=== PATIENT | female | born 1945 | race African-American/Black ===

== ENCOUNTER 2017-09-18 16:04 | Inpatient (IN) | payer OTHER, MEDICAID ==
[~2017-09-18] VITALS: Ht 162.6 cm; Wt 85.9 kg
[~2017-09-18 16:04] MED LIST: ACET500T68 PO; ASPI-612 PO; ATOR20TA58 PO; BENZ100C15 PO; CELE200C PO; CLOB15CR TP; DOXY100T PO; FLUC100T4 PO; FURO40TA4 PO; Fluticasone/Vilanterol INH; GUAI-108 PO; HYDR-2758 PO; IBUP1TAB84 PO; LORA10TA68 PO; MESA1.2T PO; METO25TA4 PO; POTA20TA4 PO; PREDNISONE; TIZA4TAB PO
--- NOTE | 2017-09-18 16:54 | RAD ---
AP PORTABLE CHEST Clinical Indication: fever. Weakness. Comparison: Two-view chest 11/26/2016. Findings: The cardiomediastinal silhouette is normal. Calcifications in the right breast are unchanged. Lungs are clear. There is no pneumothorax. No pleural effusion is appreciated. There is no acute bone abnormality. Degenerative endplate spurring in the thoracic spine. IMPRESSION: No acute cardiopulmonary process.
[2017-09-18 16:57] LABS: BASO # 0.1 x10^3/uL (0.0-0.2); BASO % 1 % (0-3); EOS # 0.1 x10^3/uL (0.0-0.7); EOS % 1 % (0-3); HEMATOCRIT 36.5 % (36.0-47.0); HEMOGLOBIN 12.6 g/dL (12.0-15.5); LYMPH # 1.4 x10^3/uL (1.0-4.8); LYMPH % 19 % (24-48); MEAN CORPUSCULAR HEMOGLOBIN 32 pg (25-35); MEAN CORPUSCULAR HGB CONC 35 g/dL (31-37); MEAN CORPUSCULAR VOLUME 92 fL (79-100); MONO # 0.9 x10^3/uL (0.0-1.1); MONO % 13 % (0-9); NEUT # 4.9 x10^3uL (1.8-7.7); NEUT % 66 % (31-73); PLATELET COUNT 223 x10^3/uL (140-400); RED BLOOD COUNT 3.95 x10^6/uL (3.50-5.40); RED CELL DISTRIBUTION WIDTH 14.1 % (11.5-14.5); WHITE BLOOD COUNT 7.3 x10^3/uL (4.0-11.0)
[2017-09-18] MEDS ORDERED: IV NORMAL SALINE 1,000ML 500 ML IV ONE (17:00)
--- NOTE | 2017-09-18 17:06 | PHYS DOC ---
Past History Past Medical History: Other Past Surgical History: Cholecystectomy, Hysterectomy, Other Alcohol Use: None Drug Use: None Adult General Chief Complaint Chief Complaint: WEAKNESS/GENERALIZED HPI HPI 72-year-old female presenting to the emergency department today with generalized fatigue malaise and fever. She recently was diagnosed with shingles and initiated on acyclovir. She continues to have the rash which is beginning to heal she reports. She denies having a cough neck stiffness confusion cyanosis lethargy. She denies numbness weakness or tingling in her extremities. She denies back pain. She denies polyuria or dysuria. She denies abdominal pain chest pain or shortness of breath. She denies cough. Onset 24 hours. Location generalized. Duration intermittent. No alleviating or exacerbating factors present. Review of systems is negative for chest pain abdominal pain nausea vomiting neck stiffness confusion. All other review of systems is negative unless otherwise noted in history of present illness. ED course: 72-year-old female presenting to the emergency department with a fever and generalized fatigue and malaise. On arrival the patient is mildly tachycardic around 115 bpm. She is febrile. Saturating well on room air. Breathing comfortably. Pertinent physical examination findings show clear lungs bilaterally. Abdomen is soft and nontender. Chest wall shows healing zoster maculopapular rash. Legs are unremarkable. Negative sign. Negative Kernig sign. Initially a small bolus of fluids along with acetaminophen to bring down the patient's fever and tachycardia ordered. Blood work obtained. Blood cultures obtained along with chest x-ray and urinalysis. Chest x-ray negative for pneumonia. CBC unremarkable. Patient's heart rate came down with IV fluids. Otherwise chemistry panel unremarkable. Broad-spectrum antibiotics and Tamiflu ordered. Discussed the case with Dr. Cornejo who accepted the patient for admission.I have assessed this patient clinically and believe that their condition requires an admission to the hospital. After consulting the admitting physician about this case, they have asked that I admit this patient to their service as an inpatient based on the clinical presentation and my impression. Review of Systems Review of Systems SEE ABOVE. Current Medications Current Medications Current Medications Medications (Trade) Dose Ordered Sig/Lenny Start Time Stop Time Status Last Admin Dose Admin Acetaminophen (Tylenol) 650 mg 1X ONCE 09/18/17 17:00 09/18/17 17:01 UNV Sodium Chloride 500 ml @ 0 mls/hr 1X ONCE 09/18/17 17:00 09/18/17 17:01 Allergies Allergies Allergies Coded Allergies Type Severity Reaction Last Updated Verified No Known Drug Allergies 07/10/14 No Physical Exam Physical Exam SEE ABOVE Constitutional: Well developed, well nourished, no acute distress, non-toxic appearance. HENT: Normocephalic, atraumatic, bilateral external ears normal, oropharynx moist, no oral exudates, nose normal. [] Eyes: PERRLA, EOMI, conjunctiva normal, no discharge. Neck: Normal range of motion, no tenderness, supple, no stridor. [] Cardiovascular: tachy rate with regular rhythm, no murmur [] Lungs & Thorax: Bilateral breath sounds clear to auscultation Abdomen: Bowel sounds normal, soft, no tenderness, no masses, no pulsatile masses. [] Skin: Warm, dry, no erythema, no rash. Back: No tenderness, no CVA tenderness. [] Extremities: No tenderness, no cyanosis, no clubbing, ROM intact, no edema. [] Neurologic: Alert and oriented X 3, normal motor function, normal sensory function, no focal deficits noted. Psychologic: Affect normal, judgement normal, mood normal. [] Current Patient Data Lab Results Laboratory Tests Test 09/18/17 16:30 White Blood Count 7.3 x10^3/uL (4.0-11.0) Red Blood Count 3.95 x10^6/uL (3.50-5.40) Hemoglobin 12.6 g/dL (12.0-15.5) Hematocrit 36.5 % (36.0-47.0) Mean Corpuscular Volume 92 fL (79-100) Mean Corpuscular Hemoglobin 32 pg (25-35) Mean Corpuscular Hemoglobin Concent 35 g/dL (31-37) Red Cell Distribution Width 14.1 % (11.5-14.5) Platelet Count 223 x10^3/uL (140-400) Neutrophils (%) (Auto) 66 % (31-73) Lymphocytes (%) (Auto) 19 % (24-48) L Monocytes (%) (Auto) 13 % (0-9) H Eosinophils (%) (Auto) 1 % (0-3) Basophils (%) (Auto) 1 % (0-3) Neutrophils # (Auto) 4.9 x10^3uL (1.8-7.7) Lymphocytes # (Auto) 1.4 x10^3/uL (1.0-4.8) Monocytes # (Auto) 0.9 x10^3/uL (0.0-1.1) Eosinophils # (Auto) 0.1 x10^3/uL (0.0-0.7) Basophils # (Auto) 0.1 x10^3/uL (0.0-0.2) EKG EKG [] Radiology/Procedures Radiology/Procedures [] Course & Med Decision Making Course & Med Decision Making Pertinent Labs and Imaging studies reviewed. (See chart for details) [] Dragon Disclaimer Dragon Disclaimer This electronic medical record was generated, in whole or in part, using a voice recognition dictation system. Departure Departure: Impression: Primary Impression: Fever Disposition: ADMITTED INPATIENT Condition: STABLE Referrals: GURWINDER HARRIS (PCP) LANI OSBORNE MD Sep 18, 2017 17:06
[2017-09-18 17:14] LABS: ALBUMIN 3.5 g/dL (3.4-5.0); CALCIUM 8.9 mg/dL (8.5-10.1); CREATININE 1.1 mg/dL (0.6-1.0); DIRECT BILIRUBIN 0.1 mg/dL (0.0-0.2); GFR 59.4; TOTAL BILIRUBIN 0.7 mg/dL (0.2-1.0); TOTAL PROTEIN 7.8 g/dL (6.4-8.2)
[2017-09-18] MEDS ORDERED: ACETAMINOPHEN 325 MG TABLET PO ONE (17:30)
[2017-09-18 17:56] LABS: CLARITY,URINE CLEAR; COLOR,URINE YELLOW
[2017-09-18 17:57] LABS: BACTERIA,URINE 0 /HPF (0-FEW); BILIRUBIN,URINE NEG (NEG); GLUCOSE,URINE NEG (NEG); HYALINE CASTS, URINE MOD /HPF; NITRITE,URINE NEG (NEG); UROBILINOGEN,URINE 0.2 mg/dL (0.2 mg/dL)
[2017-09-18] MEDS ORDERED: PIP/TAZO PER PHARMACY MC PRN (18:00)
[2017-09-18] MEDS ORDERED: OSELTAMIVIR 75 MG CAPSULE PO ONE (18:00)
--- NOTE | 2017-09-18 18:07 | EKG ---
[address] [address] Test Date: 2017-09-18 Test Time: 16:58:44 Pat Name: NAA JUAREZ Department: Room: Gender: F Adult Parole Officer: CHRISTIANNE : 1945 Requested By: LANI OSBORNE Order Number: [id number] Reading MD: Joe Garcia MD Measurements Intervals [employer] Rate: 113 P: 0 MD: 132 QRS: -12 QRSD: 88 T: 173 QT: 338 QTc: 469 Interpretive Statements SINUS TACHYCARDIA NON-SPECIFIC ST/T CHANGES Electronically Signed On 09-21-2017 11:43:16 WIRE BOUND BOX MACHINE OPERATOR by Joe Garcia MD
[2017-09-18] MEDS ORDERED: IV NORMAL SALINE 50ML 50 ML ONE (18:15)
[2017-09-18] MEDS ORDERED: ONDANSETRON PF 4 MG/2 ML VIAL. IV PRN (18:15)
[2017-09-18] MEDS ORDERED: MORPHINE SULFATE 4 MG/ML DISP.SYRIN. IV PRN (18:15)
[2017-09-18] MEDS ORDERED: HYDROcodone/APAP 5/325MG 1 TAB TABLET PO ONE (18:15)
[2017-09-18] MEDS ORDERED: ACETAMINOPHEN 325 MG TABLET PO PRN (18:15)
[2017-09-18] MEDS ORDERED: PIPERACILLIN/TAZOBACTAM 3.375 GM VIAL IV ONE (18:15)
[2017-09-18] MEDS ORDERED: PIPERACILLIN/TAZOBACTAM 3.375 GM in IV NORMAL SALINE 50ML 50 ML IV SCH (18:30)
[2017-09-18 18:59] LABS: INFLUENZA A PATIENT NEGATIVE (NEGATIVE); INFLUENZA B PATIENT NEGATIVE (NEGATIVE)
[2017-09-18] MEDS ORDERED: VALA1000 PO (19:28)
[2017-09-18] MEDS ORDERED: TRAM50TA PO (19:28)
[2017-09-18] MEDS ORDERED: PREG75CA PO (19:28)
[2017-09-18] MEDS ORDERED: LISI-338 PO (19:34)
[2017-09-18] MEDS ORDERED: CYCL5.5D (19:34)
[2017-09-18] MEDS ORDERED: PRED1DRO (19:34)
[2017-09-18 19:56] VITALS: BP 167/105
[2017-09-18] MEDS: ACYCLOVIR SODIUM 500 MG in IV DEXTROSE 5% 100 ML IV SCH (21:09)
[2017-09-18 23:30] VITALS: BP 117/56
[2017-09-19] MEDS ORDERED: PNEUMOCOCCAL VAX SCREEN. MC PRN (01:30)
[2017-09-19] MEDS: ACYCLOVIR SODIUM 500 MG in IV DEXTROSE 5% 100 ML IV SCH ×2 (05:38→18:14)
[2017-09-19 05:47] VITALS: BP 128/66
[2017-09-19 07:18] LABS: BASO # 0.1 x10^3/uL (0.0-0.2); BASO % 1 % (0-3); EOS # 0.1 x10^3/uL (0.0-0.7); EOS % 2 % (0-3); HEMATOCRIT 34.2 % (36.0-47.0); HEMOGLOBIN 11.6 g/dL (12.0-15.5); LYMPH # 1.7 x10^3/uL (1.0-4.8); LYMPH % 31 % (24-48); MEAN CORPUSCULAR HEMOGLOBIN 31 pg (25-35); MEAN CORPUSCULAR HGB CONC 34 g/dL (31-37); MEAN CORPUSCULAR VOLUME 92 fL (79-100); MONO # 0.9 x10^3/uL (0.0-1.1); MONO % 17 % (0-9); NEUT # 2.7 x10^3uL (1.8-7.7); NEUT % 49 % (31-73); PLATELET COUNT 207 x10^3/uL (140-400); RED CELL DISTRIBUTION WIDTH 14.3 % (11.5-14.5); WHITE BLOOD COUNT 5.6 x10^3/uL (4.0-11.0)
[2017-09-19 07:26] LABS: CALCIUM 8.2 mg/dL (8.5-10.1); CREATININE 1.3 mg/dL (0.6-1.0); POTASSIUM 3.1 mmol/L (3.5-5.1)
[2017-09-19] MEDS ORDERED: BENZONATATE 100 MG CAPSULE. PO PRN (08:15)
[2017-09-19] MEDS ORDERED: FLUTICASONE INH SCH (09:00)
[2017-09-19] MEDS ORDERED: BUDESONIDE 0.5 MG/2 ML NEBU NEB SCH (09:00)
[2017-09-19] MEDS ORDERED: [UNRECOGNIZED DRUG - OTHER] INH SCH (09:00)
[2017-09-19] MEDS ORDERED: ALBUTEROL SULFATE 2.5 MG/3 ML NEBU. ONE (09:38)
[2017-09-19] MEDS: POTASSIUM CHLORIDE 20 MEQ TABLET.ER. PO SCH ×2 (09:40→21:13)
[2017-09-19] MEDS: guaiFENesin DM 600/30MG 1 TAB TAB.ER.12H PO SCH ×2 (09:40→21:13)
[2017-09-19] MEDS: MESALAMINE 1.2 GM TABLET.DR PO SCH (09:41)
[2017-09-19] MEDS: LISINOPRIL 5 MG TABLET. PO SCH (09:41)
[2017-09-19] MEDS: traMADol 50 MG TABLET PO PRN ×2 (09:47→16:30)
[2017-09-19 11:07] VITALS: BP 118/78
[2017-09-19] MEDS: POTASSIUM CL 40MEQ D5-0.45NACL 1,000 ML IV SCH ×2 (11:39→21:12)
[2017-09-19] MEDS ORDERED: ALBUTEROL SULFATE 2.5 MG/3 ML NEBU. NEB SCH (12:00)
[2017-09-19] MEDS: ACYCLOVIR 5% TOPICAL OINT 5GM TUBE. TP SCH ×3 (14:00→21:22)
--- NOTE | 2017-09-19 14:20 | HP ---
ADMIT DATE: 09/18/2017 REASON FOR ADMISSION: Fever and weakness. HISTORY OF PRESENT ILLNESS: This is a 72-year-old -[place] female who was diagnosed with herpes zoster a couple of days ago and was started on valacyclovir. She was at home and became so weak to the point where she could not get herself off of the toilet. Her admissions specialist actually came and helped her get off the toilet and she came to the hospital by ambulance. PAST MEDICAL HISTORY: She has had a history of congestive heart failure. PAST SURGICAL HISTORY: Cholecystectomy and hysterectomy. SOCIAL HISTORY: Alcohol none. Tobacco none. Lives at home alone. ALLERGIES: None. MEDICATIONS: Reviewed and reconciled. REVIEW OF SYSTEMS: Positive for low back pain, some pain with the rash, fever and weakness, and constipation. OBJECTIVE: VITAL SIGNS: Blood pressure 118/78, pulse 71, respirations 20, temperature 97.8. Her T-max was 102.7, pulse ox is 96% on room air. HEENT: The face is normal. Hearing is normal. Eyes were clear. Her throat was clear. NECK: Supple. LUNGS: Clear to auscultation. CARDIOVASCULAR: Regular rhythm and rate without murmur. ABDOMEN: Soft, nontender. EXTREMITIES: Without edema. SKIN: The patient has an impressive breakout of herpes zoster from T11-T12 dermatome and all coming from the back, left side coming already around to the front but not crossing the midline. LABORATORY DATA: Hemoglobin 11.6, hematocrit 34.2. White blood cell count is normal. Chemistry: Potassium 3.1, CO2 is 20, creatinine 1.3 and it was 1.1. BNP 1119. Her troponin is 0.017. Urinalysis is negative. Flu negative. ASSESSMENT: 1. Febrile illness, most likely related to acute herpes zoster. 2. Hypokalemia. 3. Metabolic acidosis related to illness. 4. Slight dehydration. 5. Weakness. 6. Constipation. PLAN: IV acyclovir for a couple of days. PT, OT. Treat her fever and give her some IV fluids. Advance her diet. REINA MIRZA DO DR: STACEY/rafia JOB#: [id number] / [id number]
[2017-09-19 15:19] VITALS: BP 134/77
[2017-09-19] MEDS ORDERED: Influenza vaccine per PROTOCOL. MC PRN (18:15)
[2017-09-19] MEDS ORDERED: FLU VACC QS2017-18 (36MOS+)/PF 0.5 ML SYRINGE. VAX IM ONE (18:30)
[2017-09-19 19:42] VITALS: BP 180/82
[2017-09-19] MEDS ORDERED: MORPHINE SULFATE 2 MG/ML DISP.SYRIN. IV PRN (20:30)
[2017-09-19] MEDS: POLYETHYLENE GLYCOL 3350 17 GM PACKET. PO SCH (21:00)
[2017-09-19] MEDS: HYDROcodone/APAP 5/325MG 1 TAB TABLET PO PRN (21:13)
[2017-09-19] MEDS: ATORVASTATIN CALCIUM 20 MG TABLET PO SCH (21:13)
[2017-09-19 22:52] VITALS: BP 154/80
[2017-09-20] MEDS: HYDROcodone/APAP 5/325MG 1 TAB TABLET PO PRN ×4 (03:05→22:12)
[2017-09-20] MEDS: ACYCLOVIR SODIUM 500 MG in IV DEXTROSE 5% 100 ML IV SCH ×2 (05:25→17:05)
[2017-09-20] MEDS: POTASSIUM CL 40MEQ D5-0.45NACL 1,000 ML IV SCH ×2 (05:26→10:30)
[2017-09-20] MEDS: ACYCLOVIR 5% TOPICAL OINT 5GM TUBE. TP SCH ×3 (05:26→14:00)
[2017-09-20 06:34] VITALS: BP 162/84
[2017-09-20 07:19] LABS: BASO # 0.1 x10^3/uL (0.0-0.2); BASO % 1 % (0-3); EOS # 0.6 x10^3/uL (0.0-0.7); EOS % 8 % (0-3); HEMATOCRIT 32.4 % (36.0-47.0); LYMPH # 2.3 x10^3/uL (1.0-4.8); LYMPH % 33 % (24-48); MEAN CORPUSCULAR HEMOGLOBIN 32 pg (25-35); MEAN CORPUSCULAR HGB CONC 34 g/dL (31-37); MEAN CORPUSCULAR VOLUME 93 fL (79-100); MONO % 14 % (0-9); NEUT % 44 % (31-73); PLATELET COUNT 206 x10^3/uL (140-400); RED BLOOD COUNT 3.49 x10^6/uL (3.50-5.40); RED CELL DISTRIBUTION WIDTH 14.6 % (11.5-14.5); WHITE BLOOD COUNT 6.9 x10^3/uL (4.0-11.0)
[2017-09-20 07:28] LABS: ALBUMIN 2.9 g/dL (3.4-5.0); ALBUMIN/GLOBULIN RATIO 0.8 (1.0-1.7); CALCIUM 8.3 mg/dL (8.5-10.1); CREATININE 1.1 mg/dL (0.6-1.0); GFR 59.4; MAGNESIUM 2.1 mg/dL (1.8-2.4); POTASSIUM 4.6 mmol/L (3.5-5.1); TOTAL BILIRUBIN 0.4 mg/dL (0.2-1.0); TOTAL PROTEIN 6.6 g/dL (6.4-8.2)
[2017-09-20] MEDS ORDERED: PNEUMOC CONJ VACC 23-VALENT 0.5 ML VIAL. VAX IM ONE (09:00)
[2017-09-20] MEDS: guaiFENesin DM 600/30MG 1 TAB TAB.ER.12H PO SCH ×2 (09:11→20:31)
[2017-09-20] MEDS: LISINOPRIL 5 MG TABLET. PO SCH (09:11)
[2017-09-20] MEDS: MESALAMINE 1.2 GM TABLET.DR PO SCH (09:12)
[2017-09-20 16:12] VITALS: BP 144/78
[2017-09-20 19:28] VITALS: BP 153/78
[2017-09-20] MEDS: POLYETHYLENE GLYCOL 3350 17 GM PACKET. PO SCH (20:31)
[2017-09-20] MEDS: ATORVASTATIN CALCIUM 20 MG TABLET PO SCH (20:31)
[2017-09-20 23:49] VITALS: BP 143/83
--- NOTE | 2017-09-21 01:16 | PN ---
DATE: 09/20/2017 SUBJECTIVE: The patient is sitting on the edge of the bed comfortably in no apparent distress. She did say that she did have pain last night; however, she has had taken pain medication, ibuprofen and has not had any pain medication for almost 6 hours now. Denied any other complaint. PHYSICAL EXAMINATION: GENERAL: When I examined her, she looked pale, no jaundice, cyanosis, or thyromegaly. No jugular venous distention. No limb edema. VITAL SIGNS: Her heart rate was 70, blood pressure 128/66, her temperature was 97.6, respiratory rate was 16, and oxygen saturation was 95% on room air. HEAD, EYES, EARS, NOSE AND THROAT: Showed normocephalic, atraumatic. NECK: Supple. HEART: Showed normal first and second heart sounds. No gallop, rub or murmur. CHEST: Clear to auscultation. No crepitation or rhonchi. ABDOMEN: Distended, soft, nontender. No guarding or rigidity. No organomegaly. All hernial orifices intact. Bowel sounds normal. NEUROLOGIC: She has a group blisters in the distribution of the left-sided T9 with groups of blister and pustules that has not scabbed yet. NEUROLOGICAL: She was awake, alert, responding appropriately. Cranial nerves intact. She moves extremities without difficulty. She ambulates without assistance or assistive devices. SKIN: Showed that she has shingles in distribution of the left sided T9. Her intake was 3000, output was 1200. LABORATORY DATA: Her lab work this morning showed a white cell count of 6900, hemoglobin 11, hematocrit 32, MCV 93, and platelet count of 206,000. Her chemistry showed a serum sodium 135, potassium 4.6, chloride 109, bicarbonate 20, BUN 7, serum creatinine was 1.1. Estimated GFR was 59 mL per minute. Her glucose was 105, calcium was 8.3, magnesium was 1.9. Total bilirubin, AST, ALT, alkaline phosphatase were normal. Total protein was 6.6, albumin 2.9. Urinalysis unremarkable. Her influenza A and B was negative. Her blood cultures are so far negative. ASSESSMENT: Left-sided T9 herpes zoster, hypokalemia, dehydration. PLAN: Is to continue with IV acyclovir. Continue with the pain medication, __ and follow her labs. LIMA LEE MD DR: BETHANY/rafia JOB#: [id number] / [id number]
[2017-09-21] MEDS: HYDROcodone/APAP 5/325MG 1 TAB TABLET PO PRN ×4 (04:04→20:18)
[2017-09-21 05:55] VITALS: BP 160/89
[2017-09-21] MEDS: ACYCLOVIR SODIUM 500 MG in IV DEXTROSE 5% 100 ML IV SCH ×2 (05:55→23:27)
[2017-09-21 07:28] LABS: HEMATOCRIT 35.4 % (36.0-47.0); HEMOGLOBIN 11.9 g/dL (12.0-15.5); RED BLOOD COUNT 3.75 x10^6/uL (3.50-5.40); RED CELL DISTRIBUTION WIDTH 14.7 % (11.5-14.5); WHITE BLOOD COUNT 6.2 x10^3/uL (4.0-11.0)
[2017-09-21 07:35] LABS: ALBUMIN 3.4 g/dL (3.4-5.0); ALBUMIN/GLOBULIN RATIO 0.9 (1.0-1.7); CALCIUM 8.9 mg/dL (8.5-10.1); GFR 66.3; TOTAL BILIRUBIN 0.4 mg/dL (0.2-1.0); TOTAL PROTEIN 7.1 g/dL (6.4-8.2)
[2017-09-21] MEDS: MESALAMINE 1.2 GM TABLET.DR PO SCH (08:34)
[2017-09-21] MEDS: guaiFENesin DM 600/30MG 1 TAB TAB.ER.12H PO SCH ×2 (08:34→20:18)
[2017-09-21] MEDS: LISINOPRIL 5 MG TABLET. PO SCH (08:35)
[2017-09-21 15:11] VITALS: BP 127/87
--- NOTE | 2017-09-21 19:07 | PN ---
DATE: 09/21/2017 SUBJECTIVE: The patient is resting, slightly propped up in bed, in no apparent respiratory distress. She is awake, alert, continued to complain of pain in the left side of her chest along the herpes zoster in dermatomal distribution. She also complained of frequency, denied any dysuria or polyuria. She has received pain medication only twice a day. She continued to be on IV acyclovir. PHYSICAL EXAMINATION: GENERAL: When I examined her, she looked pale, no jaundice or cyanosis. No thyromegaly or compression edema. VITAL SIGNS: Her heart rate was 92, blood pressure 127/87, temperature was 97.9, respiratory rate 20, and oxygen saturation was 93%. HEAD, EYES, EARS, NOSE AND THROAT: Normocephalic, atraumatic. NECK: Supple. HEART: Showed normal first and second heart sounds with no gallop, rub, or murmur. CHEST: Clear to auscultation. No crepitation or rhonchi. ABDOMEN: Distended, soft, nontender. No guarding or rigidity. No organomegaly. Hernial orifice is intact. Bowel sounds normal. NEUROLOGIC: She was awake, alert, responding appropriately and intact. She moves extremities without difficulty. SKIN: She has herpes zoster along with the T9 on the left side. The blister is still there, still coalescing, and has not really scabbed yet. Her intake over the last 24 hours was 1140, output was 1800. LABORATORY DATA: Her lab work as of this morning showed a white cell count of 6000, hemoglobin 11, hematocrit 35, MCV 94, and platelet 236,000. Her chemistry showed a serum sodium 140, potassium 5, chloride 109, bicarbonate 20, anion gap 12, BUN 10, creatinine 1, estimated GFR was 66 mL per minute. Her glucose was 89, calcium was 8.9. Total bilirubin, AST, ALT, alkaline phosphatase were normal. Total protein was 7.1, albumin 3.4. Urinalysis was unremarkable. She has actually no bacteria. ASSESSMENT: 1. Left-sided T9 herpes zoster, on acyclovir. 2. Hypokalemia, resolved. 3. Dehydration, resolving. 4. The patient has complained of fake frequency with no polyuria or dysuria. PLAN: Her urinalysis on 09/18/2017 was normal. We will repeat another UA and culture and sensitivity. I will discontinue any potassium supplement and will repeat her lab work tomorrow. LIMA LEE MD DR: BETHANY/rafia JOB#: [id number] / [id number]
[2017-09-21 19:19] VITALS: BP 163/83
[2017-09-21] MEDS: POLYETHYLENE GLYCOL 3350 17 GM PACKET. PO SCH (19:57)
[2017-09-21] MEDS: ATORVASTATIN CALCIUM 20 MG TABLET PO SCH (20:18)
[2017-09-21 20:45] LABS: BILIRUBIN,URINE NEG (NEG); CLARITY,URINE CLEAR; COLOR,URINE STRAW; GLUCOSE,URINE NEG (NEG)
[2017-09-21 20:46] LABS: BACTERIA,URINE 0 /HPF (0-FEW); NITRITE,URINE NEG (NEG); RBC,URINE 0 /HPF (0-2); SQUAMOUS EPITHELIAL CELL,UR OCC /LPF; UROBILINOGEN,URINE 0.2 mg/dL (0.2 mg/dL); WBC,URINE OCC /HPF (0-4)
[2017-09-22] MEDS: HYDROcodone/APAP 5/325MG 1 TAB TABLET PO PRN ×3 (00:22→12:38)
[2017-09-22 05:32] VITALS: BP_SYST 155; BP_SYST 161; BP_DIAS 87; BP_DIAS 97
[2017-09-22 05:33] LABS: HEMATOCRIT 34.4 % (36.0-47.0); HEMOGLOBIN 11.5 g/dL (12.0-15.5); RED BLOOD COUNT 3.68 x10^6/uL (3.50-5.40); RED CELL DISTRIBUTION WIDTH 14.5 % (11.5-14.5); WHITE BLOOD COUNT 6.8 x10^3/uL (4.0-11.0)
[2017-09-22 05:40] LABS: CALCIUM 8.8 mg/dL (8.5-10.1); GFR 66.3; POTASSIUM 4.5 mmol/L (3.5-5.1)
[2017-09-22] MEDS: LISINOPRIL 5 MG TABLET. PO SCH (07:46)
[2017-09-22] MEDS: MESALAMINE 1.2 GM TABLET.DR PO SCH (07:47)
[2017-09-22] MEDS: traMADol 50 MG TABLET PO PRN ×2 (07:47→16:05)
[2017-09-22] MEDS: guaiFENesin DM 600/30MG 1 TAB TAB.ER.12H PO SCH ×2 (07:47→21:08)
[2017-09-22 11:17] VITALS: BP 128/77
[2017-09-22] MEDS: diphenhydrAMINE HCL 25 MG CAPSULE PO PRN ×3 (11:32→23:47)
[2017-09-22] MEDS: ACYCLOVIR SODIUM 500 MG in IV DEXTROSE 5% 100 ML IV SCH ×2 (11:33→23:47)
[2017-09-22 20:51] VITALS: BP 121/67
[2017-09-22] MEDS: POLYETHYLENE GLYCOL 3350 17 GM PACKET. PO SCH (21:00)
[2017-09-22] MEDS: oxyCODONE ER 10 MG TAB.ER.12H PO SCH (21:08)
[2017-09-22] MEDS: ATORVASTATIN CALCIUM 20 MG TABLET PO SCH (21:08)
[2017-09-22] MEDS: TEMAZEPAM 15 MG CAPSULE PO PRN (22:11)
--- NOTE | 2017-09-23 00:34 | PN ---
DATE: 09/22/2017 SUBJECTIVE: The patient is sitting on the edge of the bed, no apparent distress. She continued to complain of pain on her left side and also insomnia. OBJECTIVE: GENERAL: When I examined her, she looked pale, but not jaundiced, cyanosed or thyromegaly. No jugular venous distention. No limb edema. VITAL SIGNS: Her heart rate was 91, blood pressure 128/77, temperature was 98, respiratory rate 20, and oxygen saturation was 95%. HEAD, EYES, EARS, NOSE AND THROAT: Showed normocephalic, atraumatic. NECK: Supple. HEART: Showed normal first and second heart sounds with no gallop, rub or murmur. CHEST: Clear to auscultation. No crepitation or rhonchi. ABDOMEN: Distended, soft, nontender. No guarding or rigidity. No organomegaly. Hernial orifice intact. Bowel sounds normal. NEUROLOGIC: She was grossly intact. She has left-sided T9 herpes zoster in a dermatomal distribution. Her intake over the last 24 hours was 1740, output was 1650. LABORATORY DATA: Her serum sodium 141, potassium 4.5, chloride 107, bicarbonate 25, anion gap of 9, BUN 10, creatinine was 1. Estimated GFR was 66 mL per minute. Her glucose 97, calcium was 8.8. Her white cell count was 6800, hemoglobin 11.5, hematocrit 34.4, MCV 93, and platelet count 253,000. ASSESSMENT: 1. Left-sided T9 herpes zoster with acyclovir. The patient continued to complain of severe pain requiring hydrocodone. I added also OxyContin as well as Vistaril for insomnia. 2. Hypokalemia, resolved. 3. Dehydration, resolving. PLAN: We did send urine for urinalysis, which was basically essentially unremarkable. The urine was clear with a pH of 5, specific gravity 1.005. The urine was negative for protein, glucose, ketones, blood, nitrite with trace of leukocyte esterase, 0 rbc's, very occasional wbc's, no bacteria. My plan is to start her on OxyContin 10 mg twice a day, Vistaril 15 mg at bedtime. Continue meanwhile with acyclovir. Continue with the Benadryl for itching. We will decide on further management accordingly. LIMA LEE MD DR: Christopher JOB#: [id number] / [id number]
[2017-09-23 05:10] VITALS: BP 133/84
[2017-09-23] MEDS ORDERED: ACYCLOVIR SODIUM 500 MG in IV DEXTROSE 5% 100 ML IV SCH (09:00)
[2017-09-23] MEDS: MESALAMINE 1.2 GM TABLET.DR PO SCH (09:06)
[2017-09-23] MEDS: guaiFENesin DM 600/30MG 1 TAB TAB.ER.12H PO SCH ×2 (09:06→21:12)
[2017-09-23] MEDS: LISINOPRIL 5 MG TABLET. PO SCH (09:07)
[2017-09-23] MEDS: oxyCODONE ER 10 MG TAB.ER.12H PO SCH ×2 (09:07→21:12)
[2017-09-23] MEDS: ACYCLOVIR SODIUM 500 MG in IV DEXTROSE 5% 100 ML IV SCH ×2 (09:34→17:15)
--- NOTE | 2017-09-23 11:18 | PN ---
DATE: 09/23/2017 SUBJECTIVE: The patient is resting, slightly propped up in bed, in no apparent distress. She stated that she has a good night sleep. Her pain is much better controlled. Blisters of all over opened up, some of them are scabbed. PHYSICAL EXAMINATION: GENERAL: When I examined her this morning, she looked well and was clearly in no apparent respiratory distress, pale, but no jaundice, cyanosis or thyromegaly. No jugular venous distention. No limb edema. VITAL SIGNS: Her heart rate was 103, blood pressure 133/84, temperature was 97.8, respiratory rate was 18 and oxygen saturation was 94%. HEAD, EYES, EARS, NOSE AND THROAT: Showed normocephalic, atraumatic. NECK: Supple. HEART: Showed normal first and second sounds. No gallop, rub or murmur. CHEST: Clear to auscultation. No crepitation or rhonchi. ABDOMEN: Distended, soft, nontender. NEUROLOGIC: She is awake, alert, responding appropriately. Cranial nerves intact. She moves extremities without difficulty. She ambulates without assistance or assistive devices. Her intake was 1000, output was 400. LABORATORY DATA: Her lab work this morning showed a white cell count of 6800, hemoglobin 11.5, hematocrit 34.4, MCV 93, and platelet count 253,000. Chemistry showed a serum sodium 141, potassium 4.5, chloride 107, bicarbonate 25, anion gap of 9, BUN 10, creatinine 1, estimated GFR was 66 mL per minute. Her glucose was 97. Calcium was 8.8. ASSESSMENT: 1. Left-sided T9 herpes zoster, currently on IV acyclovir. Her pain is much better controlled after adding OxyContin. 2. Insomnia, responding very well to Restoril. 3. Hypokalemia, resolved. 4. Dehydration, resolved. She also has complained of frequency, however, her urinalysis was unremarkable. PLAN: To continue with IV acyclovir, continue with pain management. Continue with the diphenhydramine for pruritus. She remains stable tomorrow. We can discharge her home to continue with oral acyclovir. LIMA LEE MD DR: BETHANY/rafia JOB#: [id number] / [id number]
[2017-09-23] MEDS: diphenhydrAMINE HCL 25 MG CAPSULE PO PRN (14:05)
[2017-09-23 14:49] VITALS: BP 112/64
[2017-09-23] MEDS: POLYETHYLENE GLYCOL 3350 17 GM PACKET. PO SCH (21:00)
[2017-09-23] MEDS: ATORVASTATIN CALCIUM 20 MG TABLET PO SCH (21:12)
[2017-09-23] MEDS: TEMAZEPAM 15 MG CAPSULE PO PRN (22:04)
[2017-09-23 23:49] VITALS: BP 123/70
[2017-09-24] MEDS: ACYCLOVIR SODIUM 500 MG in IV DEXTROSE 5% 100 ML IV SCH ×2 (00:53→09:00)
[2017-09-24] MEDS: diphenhydrAMINE HCL 25 MG CAPSULE PO PRN (05:04)
[2017-09-24 06:27] VITALS: BP 99/63
[2017-09-24] MEDS: guaiFENesin DM 600/30MG 1 TAB TAB.ER.12H PO SCH ×2 (08:59→19:32)
[2017-09-24] MEDS: oxyCODONE ER 10 MG TAB.ER.12H PO SCH ×2 (09:00→19:31)
[2017-09-24] MEDS: MESALAMINE 1.2 GM TABLET.DR PO SCH (09:00)
[2017-09-24] MEDS: LISINOPRIL 5 MG TABLET. PO SCH (09:01)
[2017-09-24] MEDS ORDERED: PNEUMOC CONJ VACC 23-VALENT 0.5 ML VIAL. VAX IM ONE (09:15)
[2017-09-24] MEDS ORDERED: FLU VACC QS2017-18 (36MOS+)/PF 0.5 ML SYRINGE. VAX IM ONE (09:15)
--- NOTE | 2017-09-24 12:05 | PN ---
DATE: 09/24/2017 SUBJECTIVE: The patient is resting slightly propped up in bed, in no apparent respiratory distress. She continued to feel some dizziness and pain. She said that she is not ready to go home today and would like to stay one more day here. Her shingles is much improved. All the blisters are scabbed. PHYSICAL EXAMINATION: GENERAL: When I examined her, she looked pale, but no jaundice, cyanosis, or thyromegaly. No jugular venous distention. No limb edema. VITAL SIGNS: Her heart rate was 72, blood pressure 118/62, temperature was 97.7, respiratory rate was 18 and oxygen saturation was 95%. HEAD, EYES, EARS, NOSE AND THROAT: Normocephalic, atraumatic. NECK: Supple. HEART: Showed normal first and second heart sounds with no gallop, rub or murmur. CHEST: Clear to auscultation. No crepitation or rhonchi. ABDOMEN: Distended, soft, nontender. No guarding or rigidity. No organomegaly. Hernial orifice intact. Bowel sounds normal. NEUROLOGIC: She was awake, alert, responding appropriately. Cranial nerves intact. She is ambulating without assistance or assistive devices. Her intake over the last 24 hours was 1200, output was 1050. LABORATORY DATA: Her most recent serum sodium 141, potassium 4.5, chloride 107, bicarbonate 25, anion gap of 9, BUN 10, creatinine 1, estimated GFR was 66 mL per minute. Her glucose 97, calcium was 8.8. Her white cell count was 6800, hemoglobin 11.5, hematocrit 34, MCV 93, and platelet count 253,000. Her urine culture has grown gram-negative rods about 50,000 to 100,000 colony forming units per mL, which is a mixed urogenital niko. PLAN: My plan is to switch her to oral acyclovir and continue with all other medication. Continue with physical and occupational therapy. We will discharge her home tomorrow. LIMA LEE MD DR: BETHANY/rafia JOB#: [id number] / [id number]
[2017-09-24] MEDS: ACYCLOVIR 200 MG CAPSULE PO SCH ×4 (12:41→21:59)
[2017-09-24 15:01] VITALS: BP 109/68
[2017-09-24] MEDS: HYDROcodone/APAP 5/325MG 1 TAB TABLET PO PRN (16:19)
[2017-09-24 19:26] VITALS: BP 119/72
[2017-09-24] MEDS: TEMAZEPAM 15 MG CAPSULE PO PRN (19:30)
[2017-09-24] MEDS: ATORVASTATIN CALCIUM 20 MG TABLET PO SCH (19:30)
[2017-09-24] MEDS: POLYETHYLENE GLYCOL 3350 17 GM PACKET. PO SCH (19:32)
[2017-09-25] MEDS: ACYCLOVIR 200 MG CAPSULE PO SCH ×2 (05:29→10:46)
[2017-09-25] MEDS: HYDROcodone/APAP 5/325MG 1 TAB TABLET PO PRN ×2 (05:52→10:49)
[2017-09-25 05:53] VITALS: BP 98/58
[2017-09-25] MEDS: oxyCODONE ER 10 MG TAB.ER.12H PO SCH (08:37)
[2017-09-25] MEDS: guaiFENesin DM 600/30MG 1 TAB TAB.ER.12H PO SCH (08:37)
[2017-09-25] MEDS: MESALAMINE 1.2 GM TABLET.DR PO SCH (08:38)
[2017-09-25 08:43] VITALS: BP 98/63
[2017-09-25] MEDS: LISINOPRIL 5 MG TABLET. PO SCH (10:46)
[2017-09-25 10:52] VITALS: BP 128/68
[2017-09-25] MEDS ORDERED: ACYC800T PO (12:26)
[2017-09-25] MEDS ORDERED: OXYC10TA45 PO (12:30)
[2017-09-25] MEDS ORDERED: TEMA15CA PO (12:30)
[2017-09-25] MEDS ORDERED: HYDR-2758 PO (12:30)
--- NOTE | 2017-09-25 13:19 | DS ---
DATE OF DISCHARGE: 09/25/2017 HISTORY OF PRESENT ILLNESS: The patient is a 72-year-old -[place] female patient who was admitted on 09/19/2017 who apparently was diagnosed with herpes zoster a couple of days prior to admission, was started on valacyclovir. She was at home and became so weak to the point that she could not get herself to the toilet and her railway switch operator came and she was brought to the emergency room by ambulance. At that time, she was found to be febrile, most likely related to acute herpes zoster. She has also hypokalemia and metabolic acidosis. She was slightly dehydrated and also has marked weakness and constipation and was switched to IV acyclovir dose that her kidney function and she did very well. All the blisters have opened and her rash is scabbing, has been up and about, walking without assistance or assistive devices. Her pain is much better controlled now with oxycodone, hydrocodone, and it was felt that the patient is stable enough to be discharged home with home health to finish the oral acyclovir at home. PHYSICAL EXAMINATION: GENERAL: When I examined her today, she looked pale without jaundice, cyanosis, or thyromegaly. No jugular venous distension. No lower limb edema. VITAL SIGNS: Her heart rate was 88, blood pressure 128/68, temperature was 98.2, respiratory rate 20, and oxygen saturation was 93%. HEAD, EYES, EARS, NOSE AND THROAT: Normocephalic, atraumatic. NECK: Supple. HEART: Showed normal first and second heart sounds. No gallop, rub or murmur. CHEST: Clear to auscultation. No crepitation or rhonchi. ABDOMEN: Distended, soft, nontender. No guarding or rigidity. No organomegaly. Her hernial orifice intact. Bowel sounds normal. NEUROLOGIC: She was awake, alert, responding appropriately. Cranial nerves intact. She moves extremities without difficulty. She ambulates without assistance or assistive devices. All the blisters are completely opened up and all the wounds are scabbing. Her intake over the last 24 hours was 1200, output was 1000. LABORATORY DATA: Her most recent white cell count was 6800, hemoglobin 11.5, hematocrit 34.4, MCV 93, and platelet count 253,000. Her chemistry showed a serum sodium of 141, potassium 4.5, chloride 107, bicarbonate 25, Her anion gap was 9, BUN 10, creatinine 1, estimated GFR was 66 mL per minute, glucose 97, calcium was 8.8. Her total protein was 7.1, albumin was 3.4. DISCHARGE MEDICATIONS: The patient will be discharged home to continue on following medications: Acyclovir 800 mg 5 times a day for 3 more days, hydrocodone/APAP 5/325 one tablet every 6 hours as needed for pain, oxycodone for OxyContin 10 mg twice a day, temazepam 50 mg at bedtime. She was also discharged on atorvastatin calcium 20 mg at bedtime, benzonatate 200 mg every 8 hours as needed, cyclosporine for Restasis 1 drop to both eyes as needed. She is on guaifenesin dextromethorphan for Mucinex DM 1 tablet twice a day, lisinopril 5 mg once a day, mesalamine Lialda 1.2 gram tablet twice a day. She is on potassium chloride for Klor-Con 20 mEq once a day, prednisolone acetate Pred Forte 1 drop to both eyes twice a day, pregabalin 75 mg once a day, tramadol 50 mg q.4-6 hourly as needed. Breo Ellipta 1 puff once a day. FINAL DISCHARGE DIAGNOSES: 1. Left-sided T9 herpes zoster responding very well. 2. Insomnia responded very well to Restoril. 3. Hypokalemia, resolved. 4. Dehydration, resolved. She has other medical problems including hyperlipidemia for which she is on atorvastatin. 5. Congestive heart failure seems to be clinically well compensated. The patient was advised to follow with her primary care physician in 1 week's time. LIMA LEE MD DR: BETHANY/rafia JOB#: [id number] / [id number]
== END 2017-09-25 14:16 | disposition home health service (06) | DRG 872 ==
LOC: ER 16:04 → 1 SOUTH 18:45
PROVIDERS: ADMIT Family Medicine; ATTEND Family Medicine
DX: A41.9 Sepsis, unspecified organism (principal); I50.9 Heart failure, unspecified; B02.8 Zoster with other complications; E87.6 Hypokalemia; E78.5 Hyperlipidemia, unspecified; E86.0 Dehydration; L29.9 Pruritus, unspecified; G47.00 Insomnia, unspecified; K59.00 Constipation, unspecified; Z90.710 Acquired absence of both cervix and uterus; Z90.49 Acquired absence of other specified parts of digestive tract; E11.9 Type 2 diabetes mellitus without complications
CPT/HCPCS: 36415; 36569; 71010; 80048; 80053; 80076; 81001; 83605; 83690; 83735; 83880; 84484; 85025; 85027; 87040; 87086; 87804; 90686; 90732; 93005; J0133; J2543; J7042; Q0163; 99285-25; J7030

== ENCOUNTER → 2017-10-21 | Outpatient (CLI) | payer OTHER, MEDICAID ==
[2017-09-25 10:52] VITALS: BP 128/68
[~2017-10-21] MED LIST changes: +ACYC800T PO; +BENZ-8 PO; -BENZ100C15 PO; +CYCL5.5D; +LISI-338 PO; +OXYC10TA45 PO; +PRED1DRO; +PREG75CA PO; +TEMA15CA PO; +TRAM50TA PO; +VALA1000 PO
--- NOTE | 2017-10-21 09:11 | RAD ---
DATE: 10/21/2017 EXAM: DIGITAL SCREEN BILAT W/CAD HISTORY: Screening study. COMPARISON: 10/20/2016 This study was interpreted with the benefit of Computerized Aided Detection (CAD). The breast parenchyma shows scattered fibroglandular densities. Breast parenchyma level B. FINDINGS: Digital MLO and CC mammograms of both breasts were obtained. Additional true lateral and 2 exaggerated craniocaudal digital mammograms of the right breast were obtained. Comparison study is dated 10/20/2016. The breast parenchyma is composed of scattered fibroglandular densities which can obscure a lesion on mammography (breast density code B). Benign-appearing calcifications are seen within both breasts, right greater than left. An area of scarring is seen involving the right axilla, unchanged. No dominant mass is seen. No malignant appearing calcification is noted. Since the previous examination there has been no significant interval change. IMPRESSION: BI-RADS Category 2 benign findings. There is no mammographic evidence of malignancy. Routine yearly screening mammography is recommended for follow-up. BI-RADS CATEGORY: 2 BENIGN FINDING(S) RECOMMENDED FOLLOW-UP: 12M 12 MONTH FOLLOW-UP PQRS compliance statement: Patient information was entered into a reminder system with a target due date 10/21/2018 for the next mammogram. Mammography is a sensitive method for finding small breast cancers, but it does not detect them all and is not a substitute for careful clinical examination. A negative mammogram does not negate a clinically suspicious finding and should not result in delay in biopsying a clinically suspicious abnormality. "Our facility is accredited by the [employer] Mammography Program."
== END | disposition home or self-care (01) ==
LOC: MAMMO 08:14
PROVIDERS: ATTEND Physician Assistant
DX: Z12.31 Encounter for screening mammogram for malignant neoplasm of breast (principal); Z87.891 Personal history of nicotine dependence; Z85.3 Personal history of malignant neoplasm of breast
CPT/HCPCS: G0202; 77067

== ENCOUNTER → 2017-12-28 | Outpatient (CLI) | payer OTHER, MEDICAID ==
--- NOTE | 2017-12-28 13:16 | CARD ---
MR#: [id number] Date of Study: 12/28/2017 Ordering Physician: EDDA JAMESON, Referring Physician: EDDA JAMESON, Tech: Gabriela Yeung LAYA APPROVED REPORT EXAM: Two-dimensional and M-mode echocardiogram with Doppler and color Doppler. Other Information Quality : Good INDICATION Cardiomyopathy 2D DIMENSIONS RVDd2.9 (2.9-3.5cm)Left Atrium(2D)3.4 (1.6-4.0cm) IVSd0.9 (0.7-1.1cm)Aortic Root(2D)3.2 (2.0-3.7cm) LVDd5.1 (3.9-5.9cm)LVOT Diameter2.0 (1.8-2.4cm) PWd0.9 (0.7-1.1cm)LVDs3.7 (2.5-4.0cm) FS (%) 27.2 %SV64.1 ml LVEF(%)52.7 (>50%) Aortic Valve AoV Peak Milo.114.5cm/sAoV VTI21.2cm AO Peak GR.5.2mmHgLVOT Peak Milo.101.1cm/s LVOT VTI 20.64cmAO Mean GR.3mmHg PATRICIA (VMAX)2.84ha2TMD (VTI)3.06cm2 AI P 1/2 Ifoc935xl Mitral Valve MV E Kmisrhvx77.2cm/sMV DECEL CFKD302iu MV A Prgzvkab83.0cm/sE/A Ratio0.7 Tricuspid Valve TR P. Oinyccpc545zt/sRAP VDYFAUJU3eqSm TR Peak Gr.44duVaYKXO53myXc Pulmonary Vein S1 Zplflglz77.8cm/sD2 Oopaxnli03.4cm/s LEFT VENTRICLE The left ventricle is normal size. There is normal left ventricular wall thickness. Left ventricle sy stolic function is low normal. The Ejection Fraction is 50-55%. There is normal LV segmental wall mot ion. Transmitral Doppler flow pattern is Grade I-abnormal relaxation pattern. RIGHT VENTRICLE The right ventricle is normal size. The right ventricular systolic function is normal. ATRIA The left atrium size is normal. The right atrium size is normal. The interatrial septum is intact wit h no evidence for an atrial septal defect or patent foramen ovale as noted on 2-D or Doppler imaging. AORTIC VALVE The aortic valve is calcified but opens well. Doppler and Color Flow revealed trace aortic regurgitat ion. There is no significant aortic valvular stenosis. MITRAL VALVE The mitral valve is calcified but opens well. There is no evidence of mitral valve prolapse. There is no mitral valve stenosis. Doppler and Color-flow revealed trace to mild mitral regurgitation. TRICUSPID VALVE The tricuspid valve is normal in structure and function. Doppler and Color Flow revealed mild tricusp id regurgitation. The PA pressure was estimated at 35 mmHg. There is no tricuspid valve stenosis. PULMONIC VALVE The pulmonary valve is normal in structure and function. Doppler and Color Flow revealed no pulmonic valvular regurgitation. There is no pulmonic valvular stenosis. GREAT VESSELS The aortic root is normal in size. The ascending aorta is mildly dilated at 3.5 cm. The IVC is normal in size and collapses >50% with inspiration. PERICARDIAL EFFUSION There is no evidence of significant pericardial effusion. Critical Notification Critical Value: No <Conclusion> The left ventricle is normal size. Left ventricle systolic function is low normal. The Ejection Fraction is 50-55%. There is no significant aortic valvular stenosis. Doppler and Color Flow revealed trace aortic regurgitation. Doppler and Color-flow revealed trace to mild mitral regurgitation. Doppler and Color Flow revealed mild tricuspid regurgitation. The PA pressure was estimated at 35 mmHg. The ascending aorta is mildly dilated at 3.5 cm. Signed by : Jose R Logan MD Electronically Approved : 12/28/2017 13:15:52
== END | disposition home or self-care (01) ==
LOC: ECHO 08:47
PROVIDERS: ATTEND Internal Medicine Cardiovascular Disease
DX: I08.1 Rheumatic disorders of both mitral and tricuspid valves (principal)
CPT/HCPCS: 93306

== ENCOUNTER → 2018-10-27 | Outpatient (CLI) | payer OTHER, MEDICAID ==
[~2018-10-27] MED LIST changes: +HYDR-2155 PO; -HYDR-2758 PO; -OXYC10TA45 PO; +OXYC10TA46 PO
--- NOTE | 2018-10-27 12:37 | RAD ---
DATE: 10/27/2018 EXAM: DIGITAL SCREEN BILAT W/CAD HISTORY: Previous right breast cancer, screening mammograms COMPARISON: 10/21/2017 This study was interpreted with the benefit of Computerized Aided Detection (CAD). Breast Density: SCATTERED The breast parenchyma shows scattered fibroglandular densities. Breast parenchyma level B. FINDINGS: There is deformity of the right breast apparently due to previous surgery and radiation therapy. No new or enlarging breast densities are seen. Benign type calcifications evident. No suspicious microcalcifications have developed. IMPRESSION: Stable mammograms without evidence of malignancy. BI-RADS CATEGORY: 2 BENIGN FINDING(S) RECOMMENDED FOLLOW-UP: 12M 12 MONTH FOLLOW-UP PQRS compliance statement: Patient information was entered into a reminder system with a target due date for the next mammogram. Mammography is a sensitive method for finding small breast cancers, but it does not detect them all and is not a substitute for careful clinical examination. A negative mammogram does not negate a clinically suspicious finding and should not result in delay in biopsying a clinically suspicious abnormality. "Our facility is accredited by the [employer] Mammography [employer]."
== END | disposition home or self-care (01) ==
LOC: MAMMO 09:43
PROVIDERS: ATTEND Physician Assistant
DX: Z12.31 Encounter for screening mammogram for malignant neoplasm of breast (principal); Z85.3 Personal history of malignant neoplasm of breast
CPT/HCPCS: 77067

== ENCOUNTER → 2018-11-15 | Outpatient (CLI) | payer OTHER, MEDICAID ==
--- NOTE | 2018-11-15 10:24 | RAD ---
Bilateral shoulders, 6 views, 11/15/2018: HISTORY: Pain, no known injury No fracture or dislocation is identified. There is mild arthritic change at the AC joints bilaterally. There are mild sclerotic changes at the rotator cuff insertion sites on the greater tuberosity. The periarticular soft tissues are unremarkable. IMPRESSION: 1. Mild bilateral degenerative changes. 2. No acute bony abnormality is detected. Electronically signed by: Jesus Correa MD (11/15/2018 10:19 AM) [facility]
== END | disposition home or self-care (01) ==
LOC: PMG 09:32
PROVIDERS: ATTEND Physician Assistant
DX: M19.011 Primary osteoarthritis, right shoulder (principal); M19.012 Primary osteoarthritis, left shoulder
CPT/HCPCS: 73030

== ENCOUNTER → 2018-12-27 | Outpatient (CLI) | payer OTHER, MEDICAID ==
[~2018-12-27] MED LIST changes: +ONDA4TAB7 PO; +ROPI0.5T PO
--- NOTE | 2018-12-27 16:32 | CARD ---
MR#: [id number] Date of Study: 12/27/2018 Ordering Physician: EDDA JAMESON, Referring Physician: EDDA JAMESON, Tech: Johanny Vail LAYA APPROVED REPORT EXAM: Two-dimensional and M-mode echocardiogram with Doppler and color Doppler. Other Information Quality : Technically LimitedHR: 78bpm Rhythm : NSRTechnically limited study due to body habitus. INDICATION Hypertension/HCVD 2D DIMENSIONS RVDd3.0 (2.9-3.5cm)Left Atrium(2D)3.1 (1.6-4.0cm) IVSd1.1 (0.7-1.1cm)Aortic Root(2D)3.3 (2.0-3.7cm) LVDd4.7 (3.9-5.9cm)LVOT Diameter1.9 (1.8-2.4cm) PWd1.1 (0.7-1.1cm)LVDs3.4 (2.5-4.0cm) FS (%) 28.3 %SV57.1 ml LVEF(%)54.6 (>50%) M-Mode DIMENSIONS Left Atrium(MM)3.26 (2.5-4.0cm)Aortic Root3.40 (2.2-3.7cm) Aortic Valve AoV Peak Milo.122.9cm/sAoV VTI25.7cm AO Peak GR.6.0mmHgLVOT Peak Milo.94.6cm/s LVOT VTI 17.06cmAO Mean GR.3mmHg PATRICIA (VMAX)2.79rm8TYB (VTI)1.92cm2 Mitral Valve MV E Cmkbuxkw75.9cm/sMV DECEL AIFG060cs MV A Hhapgdmr29.2cm/sE/A Ratio0.6 MV A Kyirsmak078qf Pulmonary Valve PV Peak Zgcslexe62.3cm/sPV Peak Grad.4mmHg Tricuspid Valve TR P. Jowiupwm839no/sRAP VDSMJIZZ1glVl TR Peak Gr.39aiPhKCSM10wmTt LEFT VENTRICLE The left ventricle is normal size. There is borderline to mild concentric left ventricular hypertroph y. The left ventricular systolic function is normal. The Ejection Fraction is 55%. There is normal LV segmental wall motion. Transmitral Doppler flow pattern is Grade I-abnormal relaxation pattern. RIGHT VENTRICLE The right ventricle is normal size. There is normal right ventricular wall thickness. The right ventr icular systolic function is normal. ATRIA The left atrium size is normal. The right atrium size is normal. The interatrial septum is intact wit h no evidence for an atrial septal defect or patent foramen ovale as noted on 2-D or Doppler imaging. AORTIC VALVE The aortic valve is normal in structure and function. The aortic valve is trileaflet. Doppler and Col or Flow revealed mild aortic regurgitation. There is no significant aortic valvular stenosis. MITRAL VALVE The mitral valve is normal in structure and function. There is no evidence of mitral valve prolapse. There is no mitral valve stenosis. Doppler and Color-flow revealed trace mitral regurgitation. TRICUSPID VALVE The tricuspid valve is normal in structure and function. Doppler and Color Flow revealed trace tricus pid regurgitation. There is mild pulmonary hypertension. The PA pressure was estimated at 32 mmHg. Th ere is no tricuspid valve prolapse or vegetation. There is no tricuspid valve stenosis. PULMONIC VALVE The pulmonary valve is normal in structure and function. Doppler and Color Flow revealed mild pulmoni c valvular regurgitation. There is no pulmonic valvular stenosis. GREAT VESSELS The aortic root is normal in size. The ascending aorta is Mildly dilated at 3.4cm. The IVC is normal in size and collapses >50% with inspiration. PERICARDIAL EFFUSION There is no evidence of significant pericardial effusion. Critical Notification Critical Value: No <Conclusion> The left ventricular systolic function is normal. The Ejection Fraction is 55%. There is normal LV segmental wall motion. Transmitral Doppler flow pattern is Grade I-abnormal relaxation pattern. Mild aortic regurgitation. Trace mitral regurgitation. Trace tricuspid regurgitation. There is mild pulmonary hypertension. The PA pressure was estimated at 32 mmHg. There is no evidence of significant pericardial effusion. Signed by : You Eaton, Electronically Approved : 12/27/2018 16:32:32
== END | disposition home or self-care (01) ==
LOC: ECHO 09:14
PROVIDERS: ATTEND Internal Medicine Cardiovascular Disease
DX: I08.8 Other rheumatic multiple valve diseases (principal); I27.20 Pulmonary hypertension, unspecified; R00.8 Other abnormalities of heart beat
CPT/HCPCS: 93306

== ENCOUNTER → 2019-01-26 | Outpatient (CLI) | payer OTHER, MEDICAID ==
--- NOTE | 2019-01-26 14:14 | RAD ---
EXAM: Left knee, 2 views. HISTORY: Pain. COMPARISON: 09/20/2014. FINDINGS: 2 views left knee are obtained. There is lateral compartment joint space narrowing with subchondral sclerosis. There is tricompartmental spurring. There is a small suprapatellar effusion. There is suggestion of genu valgus. IMPRESSION: 1. Mild lateral compartment predominant tricompartmental osteoarthritis of the left knee. 2. Small left knee effusion. Electronically signed by: Rosaline Bush MD (01/26/2019 2:11 PM) [place] [id number]
== END | disposition home or self-care (01) ==
LOC: PMG 13:44
PROVIDERS: ATTEND Physician Assistant
DX: M17.12 Unilateral primary osteoarthritis, left knee (principal); M25.462 Effusion, left knee
CPT/HCPCS: 73560

== ENCOUNTER 2019-03-10 10:25 | Inpatient (IN) | payer OTHER, MEDICAID ==
[~2019-03-10] VITALS: Ht 162.6 cm; Wt 85.5 kg
[~2019-03-10 10:25] MED LIST changes: -ONDA4TAB7 PO; -ROPI0.5T PO
[2019-03-10 11:07] VITALS: BP 174/96
[2019-03-10] MEDS ORDERED: ROPI0.5T PO (12:39)
[2019-03-10] MEDS ORDERED: ATOR20TA58 PO (12:39)
[2019-03-10] MEDS ORDERED: METO25TA4 PO (12:39)
[2019-03-10] MEDS ORDERED: MESA1.2T PO (12:39)
[2019-03-10] MEDS ORDERED: ONDA4TAB7 PO (12:39)
--- NOTE | 2019-03-10 12:50 | HP ---
ADMIT DATE: 03/10/2019 HISTORY OF PRESENT ILLNESS: The patient is a 73-year-old -Honduran female patient who was seen yesterday at primary care physician and she apparently with complaint of recurrent bouts of cough that is mostly dry associated with feeling dizzy and has also right-sided chest pain, mostly dull aching aggravated by coughing and with movement also. Denied any chills, rigors or fever. She apparently was seen in the office and has had a chest x-ray, which basically showed that the patient has a moderate sized right-sided pleural effusion and associated consolidative lung infiltrate or compressive atelectasis of the right lung base. Left lung field is clear, no pneumothorax is seen. The heart size, pulmonary vasculature, mediastinum and both raji are unremarkable. The osseous structures appear normal. She has had also lab work done, which showed that her white cell count was slightly elevated at 11,100. Her hemoglobin was 13, hematocrit 39, MCV 94 and platelet count of 334,000 with normal manual differential. Her sedimentation rate was extremely high at 97 mm per hour and her chemistry showed that her serum sodium was 140, potassium 4, chloride 106, bicarbonate 22 and glucose was 103, BUN 14, creatinine 0.89. Estimated GFR was 76 mL per minute. Her calcium was 9.3. Total protein 7.4, albumin 4, globulin 3.4. Her total bilirubin, AST, ALT, alkaline phosphatase are normal. The patient was admitted with a diagnosis of community-acquired pneumonia for which she will be started on IV ceftriaxone as well as Zithromax. PAST MEDICAL HISTORY: Significant for hypertension, shingles, breast cancer, and leukemia and Parkinson's disease as well as osteoarthritis, severe left knee. PAST SURGICAL HISTORY: Significant for right axillary lymphadenectomy. She had bilateral cataract extraction, appendectomy, cholecystectomy, total abdominal hysterectomy, bilateral salpingo-oophorectomy, had colonoscopy and bone marrow biopsy x 3. ALLERGIES: She has no known drug allergies. MEDICATIONS: She is on following medications: She is on lisinopril 5 mg once a day, atorvastatin calcium 20 mg at bedtime. She is on pregabalin 75 mg 3 times a day, OxyContin 10 mg twice a day, hydrocodone/APAP 5/325 one tablet every 6 hours, temazepam 50 mg at bedtime, potassium chloride 40 mEq daily. She is on Mucinex DM one twice a day. She is on prednisolone acetate for Pred Forte 1 drop to both eyes daily, cyclosporine for Restasis multi-dose and she is on mesalamine 1.2 gram tablet 2 tablets daily and she is on Breo Ellipta 100/25 one inhalation daily. FAMILY HISTORY: She has 5 brothers and 3 sisters, at the age of 76 because of congestive heart failure. She has another sister younger at the age of 67 and seemingly healthy. She has one brother who is alive at 74. She has 2 brothers who of myocardial infarction, one of throat cancer and one was killed in [place] at the age of 19. SOCIAL HISTORY: She is , has no children. She quit smoking about 7 years ago and she was diagnosed with leukemia. She does not drink alcohol or use any illicit drugs. 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 REVIEW OF SYSTEMS: She has bilateral cataract extraction, but denied any glaucoma or macular degeneration. Denied any earache, tinnitus or sensorineural deafness. Denied any nosebleeds, stuffy nose or postnasal drip. Denied any sore throat, sore tongue, toothache, hoarseness of voice or difficulty swallowing. Denied any nausea, vomiting, diarrhea or constipation. Denied any hematemesis, melena or hematochezia. Denied any dysuria, frequency or hematuria. Did complain of frequency. Did complain of right-sided chest pain, but denied any orthopnea or paroxysmal nocturnal dyspnea. She has cough, which is mostly dry. Denied any chills, rigors or fever. ASSESSMENT AND PLAN: In summary, this is a 73-year-old -Honduran female patient who was admitted with cough, which is mostly dry and right-sided chest pain. She has large right-sided pleural effusion with associated lung consolidation versus compressive atelectasis. She is known to have a history of breast cancer diagnosed 12 years ago and leukemia diagnosed about 7 years ago. She has multiple other medical problems including: A. Hypertension. B. Hyperlipidemia. C. Parkinson disease. D. Osteoarthritis. PLAN: To resume her home medication, we will start her on IV ceftriaxone and oral Zithromax. We will get the medication list from [facility] and once we have all the information, we will continue all her medication and arrange for a CT scan of the chest after obtaining an IV access. LIMA LEE MD DR: BETHANY/rafia JOB#: [id number] / [id number]
--- NOTE | 2019-03-10 13:57 | RAD ---
Right femur, 2 views, 03/10/2019: HISTORY: Fall No fracture is identified. There is mild degenerative change at the right hip joint. IMPRESSION: No acute right femoral abnormality is detected. Right knee, 2 views, 03/10/2019: No fracture or dislocation is identified. There is minimal marginal spurring. No significant joint effusion is evident. Arterial calcifications are noted. IMPRESSION: No acute right knee abnormality is detected. Right tibia and fibula, 2 views, 03/10/2019: No fracture or bony abnormality is detected. Arterial calcifications are noted. IMPRESSION: No acute bony abnormality is detected. Electronically signed by: Jesus Correa MD (03/10/2019 1:55 PM) [facility]
[2019-03-10] MEDS ORDERED: IOHEXOL 300 MG/ML 75 ML VIAL. IV ONE (14:35)
[2019-03-10] MEDS ORDERED: HYDROcodone/APAP 5/325MG 1 TAB TABLET PO PRN (14:45)
[2019-03-10 14:53] VITALS: BP 179/81
[2019-03-10] MEDS ORDERED: ENOXAPARIN 40 MG/0.4 ML SYRINGE. SQ SCH (15:00)
[2019-03-10] MEDS: traMADol 50 MG TABLET PO PRN ×2 (15:08→21:05)
[2019-03-10] MEDS ORDERED: ONDANSETRON ODT 4 MG TAB.RAPDIS PO PRN (15:30)
[2019-03-10] MEDS ORDERED: AZITHROMYCIN 250 MG TABLET. PO SCH (16:00)
--- NOTE | 2019-03-10 17:00 | RAD ---
PORTABLE CHEST 1V 4:41 PM Clinical indications: PICC LINE PLACEMENT COMPARISON: March 09, 2019. Findings: Left upper extremity PICC line has been placed and the tip is seen within the lower SVC near the junction with the right atrium. Again seen is a moderate to large right-sided pleural effusion and associated right lung base compressive atelectasis or infiltrate. No new lung infiltrate is seen on the left side. No pneumothorax is evident. The heart size and mediastinum are stable. Impression: Stable moderate to large right-sided pleural effusion and associated compressive atelectasis or consolidative infiltrate of the right lung base. Electronically signed by: Simeon Freed MD (03/10/2019 4:57 PM) [id number]
[2019-03-10 17:13] LABS: ALBUMIN 2.7 g/dL (3.4-5.0); ALBUMIN/GLOBULIN RATIO 0.6 (1.0-1.7); CALCIUM 9.1 mg/dL (8.5-10.1); CREATININE 1.1 mg/dL (0.6-1.0); GFR 59.2; POTASSIUM 3.2 mmol/L (3.5-5.1); TOTAL BILIRUBIN 0.7 mg/dL (0.2-1.0); TOTAL PROTEIN 7.1 g/dL (6.4-8.2)
--- NOTE | 2019-03-10 17:41 | RAD ---
CT chest with contrast. HISTORY: Cough with right-sided pleural effusion CT scan of the chest was done with intravenous contrast. Thyroid is homogeneous. There is a PICC line from the left arm to the superior vena cava. There is a moderate to large right pleural effusion. There is atelectasis in the right lower lobe. There is atelectasis in the right middle lobe. Subcarinal lymph node is enlarged. There is a mass at the hilum of the lung on the right side extending into the lower lobe and middle lobe. There is calcified mass in the chest wall on the right side. There is a soft tissue mass between the right third and fourth ribs. A liver lesion is not identified in the visualized portion of the liver. Spleen and adrenal glands are unremarkable. Upper poles the kidneys are normal. There are accessory spleens. IMPRESSION: 1. Right chest wall mass between the right third and fourth ribs anterior laterally. 2. Extensive scarring and calcification in the chest wall and breast on the right side. 3. Moderate to large right pleural effusion. 4. Mass at the hilum of the lung on the right side possible lung cancer. 5. Enlarged subcarinal lymph node Electronically signed by: Krishna Vieira MD (03/10/2019 5:38 PM) [facility]
[2019-03-10 17:59] LABS: BASO # 0.1 x10^3/uL (0.0-0.2); BASO % 1 % (0-3); EOS # 0.2 x10^3/uL (0.0-0.7); EOS % 2 % (0-3); HEMATOCRIT 38.1 % (36.0-47.0); HEMOGLOBIN 12.4 g/dL (12.0-15.5); LYMPH # 1.7 x10^3/uL (1.0-4.8); LYMPH % 15 % (24-48); MEAN CORPUSCULAR HEMOGLOBIN 31 pg (25-35); MEAN CORPUSCULAR HGB CONC 33 g/dL (31-37); MEAN CORPUSCULAR VOLUME 95 fL (79-100); MONO # 0.9 x10^3/uL (0.0-1.1); MONO % 8 % (0-9); NEUT # 8.5 x10^3uL (1.8-7.7); NEUT % 74 % (31-73); PLATELET COUNT 294 x10^3/uL (140-400); RED BLOOD COUNT 3.99 x10^6/uL (3.50-5.40); RED CELL DISTRIBUTION WIDTH 13.8 % (11.5-14.5); WHITE BLOOD COUNT 11.5 x10^3/uL (4.0-11.0)
[2019-03-10] MEDS ORDERED: ACYCLOVIR PO SCH (18:00)
[2019-03-10 19:20] VITALS: BP 156/83
[2019-03-10] MEDS ORDERED: guaiFENesin DM 200MG/20MG 10 ML SYRUP PO PRN (19:45)
[2019-03-10] MEDS: rOPINIRole 0.5 MG TABLET. PO SCH (19:56)
[2019-03-10] MEDS: ALBUTEROL SULFATE 2.5 MG/3 ML NEBU. NEB SCH ×2 (20:00→20:06)
[2019-03-10] MEDS: BUDESONIDE 0.5 MG/2 ML NEBU NEB SCH (20:06)
[2019-03-10] MEDS ORDERED: ATORVASTATIN CALCIUM 20 MG TABLET PO SCH (21:00)
[2019-03-10] MEDS ORDERED: TEMAZEPAM 15 MG CAPSULE PO SCH (21:00)
[2019-03-10] MEDS ORDERED: guaiFENesin DM 600/30MG 1 TAB TAB.ER.12H PO SCH (21:00)
[2019-03-10] MEDS ORDERED: METOPROLOL TART IMMED RELEASE 25 MG TABLET PO SCH (21:00)
[2019-03-10] MEDS ORDERED: PREGABALIN 75 MG CAPSULE PO SCH (21:00)
[2019-03-10] MEDS ORDERED: oxyCODONE ER 10 MG TAB.ER.12H PO SCH (21:00)
[2019-03-10] MEDS: BENZONATATE 100 MG CAPSULE. PO PRN (21:06)
[2019-03-10] MEDS: LACTOBACILLUS RHAMNOSUS GG 1 CAPSULE. PO SCH (21:08)
[2019-03-10 22:06] VITALS: BP 130/80
[2019-03-11] MEDS: ALBUTEROL SULFATE 2.5 MG/3 ML NEBU. NEB SCH ×2 (05:25→10:51)
[2019-03-11] MEDS: BUDESONIDE 0.5 MG/2 ML NEBU NEB SCH (05:25)
[2019-03-11 05:58] VITALS: BP 144/93
[2019-03-11] MEDS: rOPINIRole 0.5 MG TABLET. PO SCH (06:03)
[2019-03-11] MEDS ORDERED: MESALAMINE 1.2 GM TABLET.DR PO SCH ×2 (08:00→09:00)
[2019-03-11] MEDS: LACTOBACILLUS RHAMNOSUS GG 1 CAPSULE. PO SCH (08:41)
[2019-03-11] MEDS: traMADol 50 MG TABLET PO PRN (08:41)
[2019-03-11] MEDS: BENZONATATE 100 MG CAPSULE. PO PRN (08:41)
[2019-03-11] MEDS ORDERED: VILANTEROL INH SCH (09:00)
[2019-03-11] MEDS ORDERED: LISINOPRIL 5 MG TABLET. PO SCH (09:00)
[2019-03-11] MEDS ORDERED: POTASSIUM CHLORIDE 20 MEQ TABLET.ER. PO SCH (09:00)
[2019-03-11] MEDS ORDERED: prednisoLONE ACETATE 1% OPHTH SUSPENSION 5ML BOTTLE. OU SCH (09:00)
[2019-03-11] MEDS ORDERED: FLUTICASONE INH SCH (09:00)
[2019-03-11] MEDS ORDERED: ATORVASTATIN CALCIUM 20 MG TABLET PO SCH (09:00)
[2019-03-11 12:23] VITALS: BP 136/79
--- NOTE | 2019-03-11 12:37 | DS ---
DATE OF DISCHARGE: 03/11/2019 HOSPITAL COURSE: The patient is a 73-year-old -Grenadian female patient, who was admitted directly from her primary care physician's office, she apparently was complaining of recurrent bouts of cough that is mostly dry. She did feeling dizzy and has right-sided chest pain, mostly dull, aching, aggravated by coughing and with movement also. Her chest x-ray showed that she has moderate sized right-sided pleural effusion, associated consolidative lung infiltrate or compressive atelectasis of the right lung base. Her left lung is clear, no pneumothorax is seen and was admitted with possibility of community-acquired pneumonia. We will start her on IV ceftriaxone as well as Zithromax. We did actually a CT scan of the chest with PE protocol after putting a PICC line and her CT scan showed that the patient has right chest wall mass between the right third and fourth ribs anteriorly and laterally. She has extensive scarring, calcification of the anterior chest wall, breast on the right side. She has moderate to large right-sided pleural effusion. She has also a mass at the hilum of the lung on the right side with possible lung cancer and large subcarinal lymph node. I did plan to transfer her to [facility], but apparently she was treated by her oncologist at the [facility]. He spoke with the transfer center there and they accepted her for further evaluation and treatment. When I saw her this morning, she was resting slightly propped up in bed, in no apparent respiratory distress. She continued to complain of cough, which is dry, right-sided chest pain. PHYSICAL EXAMINATION: GENERAL: When I examined her, she looked pale, but no jaundice, cyanosis, or thyromegaly. No jugular venous distension. No lower limb edema. VITAL SIGNS: Her heart rate was 89, blood pressure was 144/93, temperature was 97.8, respiratory rate 22 and oxygen saturation was 92% on 2 liters of oxygen by nasal cannula. HEAD, EYES, EARS, NOSE AND THROAT: Showed normocephalic, atraumatic. NECK: Supple. HEART: Showed normal first and second heart sounds. No gallop or murmur. CHEST: Shows central trachea, good air entry and chest expansion. The left side reduced air entry and dull percussion noted particularly in the right side. ABDOMEN: Distended, soft, nontender. NEUROLOGIC: She is awake, alert, responding appropriately. All cranial nerves intact. She moves extremities without difficulty. She ambulates without assistance or assistive devices. Her intake over the last 24 hours was 1500, no output was recorded. LABORATORY DATA: As of yesterday showed a white cell count of 11,500, hemoglobin 12, hematocrit 38, MCV 95, and platelet count 294,000. Her chemistry showed a serum sodium 144, potassium 3.2, chloride 108, bicarbonate 26, anion gap of 10, BUN 13, creatinine 1.1, estimated GFR was 59 mL per minute. Her glucose was 106, calcium was 9.1. Total bilirubin, AST, ALT, alkaline phosphatase were normal. Her total protein was 7.1, albumin was 2.7. Her lactic acid was 1.9. In summary, this is a 73-year-old -[place] female patient with possible recurrence of her breast cancer with large right-sided pleural effusion. She also has a history of leukemia. She would be transferred to [facility] in [place]. She is to continue on following medications: Acyclovir 800 mg and should be on atorvastatin calcium 20 mg p.o. daily, atorvastatin calcium 20 mg daily, benzonatate 200 mg every 8 hours. She was also discharged on benzonatate 200 mg every 8 hours, cyclosporine for Restasis to both eyes, Flonase vilanterol 1 puff daily, Mucinex DM 600/30 one tablet twice a day, hydrocodone/APAP 5/325 one tablet every 6 hours, lisinopril 5 mg daily, mesalamine at 1.2 grams 2 tablets daily, mesalamine 1.2 mg daily, Metoprolol Tartrate 25 mg daily, ondansetron for Zofran 4 mg every 6 hours, OxyContin 10 mg twice a day, potassium chloride 40 mEq daily, prednisolone acetate Pred Forte 1 drop to both eyes once a day, pregabalin 75 mg twice a day, Requip 0.5 mg twice a day, temazepam 50 mg at bedtime and tramadol 50 mg every 6 hours. FINAL DISCHARGE DIAGNOSES: 1.Questionable recurrence of breast cancer with a mass in the right chest wall. 2.Right-sided pleural effusion, lung mass with possible lung cancer and enlarged subcarinal lymph node. LIMA LEE MD DR: Christopher JOB#: [id number] / [id number]
== END 2019-03-11 13:30 | disposition short-term general hospital (02) | DRG 194 ==
LOC: 1 SOUTH 10:25
PROVIDERS: ADMIT Internal Medicine; ATTEND Internal Medicine
PROC: 02HV33Z Insertion of Infusion Device into Superior Vena Cava, Percutaneous Approach (ICD-10-PCS; principal; 2019-03-10)
DX: J18.9 Pneumonia, unspecified organism (principal); J90 Pleural effusion, not elsewhere classified; J98.11 Atelectasis; E78.5 Hyperlipidemia, unspecified; G20 Parkinson's disease; I10 Essential (primary) hypertension; M19.90 Unspecified osteoarthritis, unspecified site; Z80.8 Family history of malignant neoplasm of other organs or systems; Z82.49 Family history of ischemic heart disease and other diseases of the circulatory system; Z85.6 Personal history of leukemia; Z85.3 Personal history of malignant neoplasm of breast; Z87.891 Personal history of nicotine dependence; Z90.710 Acquired absence of both cervix and uterus; Z98.41 Cataract extraction status, right eye; Z98.42 Cataract extraction status, left eye
CPT/HCPCS: 36415; 36569; 71045; 71046; 71260; 73552; 73560; 73590; 80053; 83605; 85025; 87040; 94640; J0456; J0696; J1650; J7613; J7626; Q0162; Q9967

== ENCOUNTER 2019-04-03 09:49 | Emergency (ER) | payer OTHER, MEDICAID ==
[~2019-04-03] VITALS: Ht 162.6 cm; Wt 86.0 kg
[~2019-04-03 09:49] MED LIST changes: +ONDA4TAB7 PO; +ROPI0.5T PO
[2019-04-03] MEDS ORDERED: HYOSCYAMINE 0.125 MG TAB.RAPDIS PO ONE (10:45)
[2019-04-03] MEDS ORDERED: IPRATRPIUM/ALBUTEROL 0.5/2.5MG 3 ML NEBU. NEB ONE (10:45)
[2019-04-03] MEDS ORDERED: ONDANSETRON PF 4 MG/2 ML VIAL. IV ONE (10:45)
--- NOTE | 2019-04-03 11:16 | EKG ---
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
[2019-04-03 11:17] LABS: BASO # 0.1 x10^3/uL (0.0-0.2); BASO % 1 % (0-3); EOS # 0.1 x10^3/uL (0.0-0.7); EOS % 1 % (0-3); HEMATOCRIT 37.4 % (36.0-47.0); HEMOGLOBIN 12.3 g/dL (12.0-15.5); LYMPH # 1.2 x10^3/uL (1.0-4.8); LYMPH % 10 % (24-48); MEAN CORPUSCULAR HEMOGLOBIN 31 pg (25-35); MEAN CORPUSCULAR HGB CONC 33 g/dL (31-37); MEAN CORPUSCULAR VOLUME 95 fL (79-100); MONO # 0.9 x10^3/uL (0.0-1.1); MONO % 7 % (0-9); NEUT # 9.5 x10^3uL (1.8-7.7); NEUT % 81 % (31-73); PLATELET COUNT 347 x10^3/uL (140-400); RED BLOOD COUNT 3.94 x10^6/uL (3.50-5.40); RED CELL DISTRIBUTION WIDTH 14.5 % (11.5-14.5); WHITE BLOOD COUNT 11.8 x10^3/uL (4.0-11.0)
--- NOTE | 2019-04-03 11:19 | PHYS DOC ---
Past History Past Medical History: Cancer (breast), CHF, Dementia, Pneumonia Past Surgical History: Appendectomy, Cancer Surgery, Cholecystectomy, Hysterectomy, Other Alcohol Use: None Drug Use: None Adult General Chief Complaint Chief Complaint: SHORTNESS OF BREATH HPI HPI Patient is a 74-year-old female presents with shortness of breath. She was recently discharged from the hospital after requiring a chest tube for drainage of an effusion associated with pneumonia on her right side. Her current symptoms started yesterday. She denies any worsening with exertion.. She denies any cu rrent fever or cough. She also notes that her upper abdomen is "quivering" and that has been going on for the past several days. Nothing seems to make that better or worse. No new nausea, vomiting, or diarrhea.[] Review of Systems Review of Systems Constitutional: Denies fever or chills [] Eyes: Denies change in visual acuity, redness, or eye pain [] HENT: Denies nasal congestion or sore throat [] Respiratory: See history of present illness[] Cardiovascular: No chest pain or palpitations[] GI: Denies abdominal pain, nausea, vomiting, bloody stools or diarrhea, see history of present illness [] : Denies dysuria or hematuria [] Musculoskeletal: Denies back pain or joint pain [] Integument: Denies rash or skin lesions [] Neurologic: Denies headache, focal weakness or sensory changes [] Endocrine: Denies polyuria or polydipsia [] All other systems were reviewed and found to be within normal limits, except as documented in this note. Current Medications Current Medications Current Medications Medications (Trade) Dose Ordered Sig/Lenny Start Time Stop Time Status Last Admin Dose Admin Albuterol/ Ipratropium (Duoneb) 3 ml 1X ONCE 04/03/19 10:45 04/03/19 10:46 DC 04/03/19 10:45 3 ML Hyoscyamine (Anaspaz) 0.125 mg 1X ONCE 04/03/19 10:45 04/03/19 10:46 DC 04/03/19 10:56 0.125 MG Ondansetron HCl (Zofran) 4 mg 1X ONCE 04/03/19 10:45 04/03/19 10:46 DC 04/03/19 10:50 4 MG Allergies Allergies Allergies Coded Allergies Type Severity Reaction Last Updated Verified No Known Drug Allergies 07/10/14 No Physical Exam Physical Exam Constitutional: Well developed, well nourished, no acute distress, non-toxic appearance. [] HENT: Normocephalic, atraumatic, bilateral external ears normal, oropharynx moist, no oral exudates, nose normal. [] Eyes: PERRLA, EOMI, conjunctiva normal, no discharge. [] Neck: Normal range of motion, no tenderness, supple, no stridor. [] Cardiovascular:Heart rate regular rhythm, no murmur [] Lungs & Thorax: Decreased breath sounds on the right side. No flail segment, no crepitus, dullness to percussion, chest tube incision appears healed, clean and dry, no drainage [] Abdomen: Bowel sounds normal, soft, no tenderness, no masses, no pulsatile masses. [] Skin: Warm, dry, no erythema, no rash. [] Back: No tenderness, no CVA tenderness. [] Extremities: No tenderness, no cyanosis, no clubbing, ROM intact, no edema. [] Neurologic: Alert and oriented X 3, normal motor function, normal sensory function, no focal deficits noted. [] Psychologic: Affect normal, judgement normal, mood normal. [] Current Patient Data Vital Signs Vital Signs Date Time Temp Pulse Resp B/P (MAP) Pulse Ox O2 Delivery O2 Flow Rate FiO2 04/03/19 10:05 97.7 99 26 78 Room Air EKG EKG EKG shows a tachycardia at 101 bpm, sinus rhythm, left axis at -22, QTC at 447 ms, no ST elevations. Interpreted by me at 1111[] Radiology/Procedures Radiology/Procedures Chest x-ray shows a right-sided pleural effusion[] Course & Med Decision Making Course & Med Decision Making Pertinent Labs and Imaging studies reviewed. (See chart for details) ED course: Patient arrived, was placed in bed, placed on oxygen, and tolerated exam well. Consultation was made initially with the hospitalist here at [facility] for admission with the caveat that the patient would need this likely to be transferred to [place] given their higher level of care with pulmonary and oncology. Patient prefers to return back to [place] in [place] since there is family there. Contact was made with [facility] in [place] and Dr. Mata graciously accepted the patient in transfer. Medical decision making: Patient appears to have recurrence of her right-sided pleural effusion. In discussion with Dr. Mata it sounds like this is been worked up previously, and patient has a fair amount of dementia and so does not recall everything that has been said or done previously[] Dragon Disclaimer Dragon Disclaimer This electronic medical record was generated, in whole or in part, using a voice recognition dictation system. 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
[2019-04-03 11:31] LABS: ALBUMIN 2.7 g/dL (3.4-5.0); ALBUMIN/GLOBULIN RATIO 0.6 (1.0-1.7); CALCIUM 9.3 mg/dL (8.5-10.1); GFR 65.9; POTASSIUM 3.8 mmol/L (3.5-5.1); TOTAL PROTEIN 7.4 g/dL (6.4-8.2)
--- NOTE | 2019-04-03 12:29 | RAD ---
EXAM: CHEST 2 VIEWS. HISTORY: Shortness of breath, hypoxia. COMPARISON: 03/10/2019. FINDINGS: Frontal and lateral views of the chest are obtained. The right hemithorax is mostly opacified, consistent with a large pleural effusion. This has increased since the prior study. Linear opacities in the left base may represent atelectasis or mild pulmonary edema. A large region of right chest wall calcification is again noted. There is no pneumothorax. The heart is not enlarged. IMPRESSION: 1. Increased right pleural effusion, now large. 2. Left basilar atelectasis versus mild pulmonary edema. Electronically signed by: Harpreet Cortés MD (04/03/2019 12:26 PM) [facility]
[2019-04-03] MEDS ORDERED: ACETAMINOPHEN 325 MG TABLET PO ONE ×2 (14:18→14:45)
[2019-04-03 14:21] VITALS: BP 143/82
== END 2019-04-03 14:30 | disposition short-term general hospital (02) ==
LOC: ER 09:49
DX: J90 Pleural effusion, not elsewhere classified (principal); C76.1 Malignant neoplasm of thorax; I50.9 Heart failure, unspecified; F03.90 Unspecified dementia, unspecified severity, without behavioral disturbance, psychotic disturbance, mood disturbance, and anxiety
CPT/HCPCS: 36415; 71046; 80053; 83605; 83690; 83880; 84484; 85025; 85379; 87040; 93005; 94640; 96374; 99285; J2405; J7620